=== PATIENT | female | born 1995 | race Hispanic/Latino ===

== ENCOUNTER 2022-08-16 01:41 | Emergency (ER) | payer SELFPAY ==
--- NOTE | 2022-08-16 02:20 | EDPHYS ---
Physician Documentation [facility] Name: Kaila Ambriz Age: 26 yrs Sex: Female : 1995 Arrival Date: 08/16/2022 Time: 01:44 Bed 16 Private MD: ED Physician Miguel Angel Ramirez HPI: 08/16 05:46 This 26 yrs old Female presents to ER via Ambulatory with complaints of rt Toothache, Jaw Pain, Swelling in jaw. 05:46 Patient presents to the ED with a right-sided dental pain, swelling to the right lower rt jaw starting yesterday. Patient has not seen a dentist recently. Denies difficulty swallowing, fevers, other acute complaints. Pain is aching nature, nonradiating, mild in severity, no other aggravating or alleviating factors.. 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 - Social history:: Smoking status: Patient denies any tobacco usage or history of. - Family history:: not pertinent. ROS: 05:46 Constitutional: Negative for fever, chills, and weight loss, Eyes: Negative for injury, rt pain, redness, and discharge, Respiratory: Negative for shortness of breath, cough, wheezing, and pleuritic chest pain, Abdomen/GI: Negative for abdominal pain, nausea, vomiting, diarrhea, and constipation, Skin: Negative for injury, rash, and discoloration, Neuro: Negative for headache, weakness, numbness, tingling, and seizure, Psych: Negative for depression, anxiety, suicide ideation, homicidal ideation, and hallucinations. 05:46 ENT: Positive for dental pain, Negative for difficulty handling secretions. Exam: 05:46 Constitutional: This is a well developed, well nourished patient who is awake, alert, rt and in no acute distress. Head/Face: Normocephalic, atraumatic. Skin: Warm, dry with normal turgor. Normal color with no rashes, no lesions, and no evidence of cellulitis. MS/ Extremity: Pulses equal, no cyanosis. Neurovascular intact. Full, normal range of motion. Neuro: Awake and alert, GCS 15, oriented to person, place, time, and situation. Cranial nerves II-XII grossly intact. Motor strength 5/5 in all extremities. Sensory grossly intact. Cerebellar exam normal. Normal gait. Psych: Awake, alert, with orientation to person, place and time. Behavior, mood, and affect are within normal limits. 05:46 ENT: Multiple dental caries noted. There is mild right-sided facial swelling at that location. No posterior pharyngeal erythema or exudates, tonsillar hypertrophy, uvula is midline. Vital Signs: 02:11 BP 133 / 88; Pulse 70; Resp 17; Temp 98.1(O); Pulse Ox 100% on R/A; Weight 60.1 kg (M); ll3 Height 5 ft. 2 in. (157.48 cm) (R); Pain 7/10; 02:11 Body Mass Index 24.23 (60.10 kg, 157.48 cm) ll3 MDM: 02:08 Patient medically screened. rt 05:46 Differential diagnosis: dental caries, RPA, TRAIN ANNOUNCER, Ludewig's angina. Data reviewed: vital rt signs, nurses notes. I considered the following discharge prescriptions or medication management in the emergency department Medications were administered in the Emergency Department. See MAR. Test considered but Not performed: CT: Do not suspect abscess requiring drainage, CT scan not indicated.. Counseling: I had a detailed discussion with the patient and/or guardian regarding: the historical points, exam findings, and any diagnostic results supporting the discharge/admit diagnosis, the need for outpatient follow up. Administered Medications: 02:32 Drug: Ketorolac 30 mg Route: IM; Site: left deltoid; ke1 02:33 Follow up: Response: Medication administered at discharge. ke1 02:32 Drug: Augmentin (Amoxicillin-Clavulanate) 875 mg Route: PO; ke1 02:33 Follow up: Response: Medication administered at discharge. ke1 Disposition Summary: 08/16/22 02:20 Discharge Ordered Location: Home rt Problem: new rt Symptoms: are unchanged rt Condition: Stable rt Diagnosis - Dental caries, unspecified rt Followup: rt - With: Private Physician - When: 2 - 3 days - Reason: Discharge Instructions: - Discharge Summary Sheet rt - Dental Caries, Adult rt - Dental Pain rt Forms: - Medication Reconciliation Form rt - Thank You Letter rt - Antibiotic Education rt - Prescription Opioid Use rt Prescriptions: - Augmentin 875-125 mg Oral Tablet - take 1 tablet by ORAL route every 12 hours for 10 days; 20 tablet; Refills: 0, rt Product Selection Permitted Signatures: Mary Sosa RN RN ll3 Anatoly Abreu RN RN ke1 Miguel Angel Ramirez MD MD rt
--- NOTE | 2022-08-16 02:20 | ER ---
Nurse's Notes [facility] Name: Kaila Ambriz Age: 26 yrs Sex: Female : 1995 Arrival Date: 08/16/2022 Time: 01:44 Bed 16 Private MD: Diagnosis: Dental caries, unspecified Presentation: 08/16 02:11 Chief complaint: Patient states: C/o right sided jaw pain and swelling since yesterday ll3 morning. Coronavirus screen: Vaccine status: Patient reports being unvaccinated. At this time, the client does not indicate any symptoms associated with coronavirus-19. Ebola Screen: No symptoms or risks identified at this time. Initial Sepsis Screen: Does the patient meet any 2 criteria? No. Patient's initial sepsis screen is negative. Does the patient have a suspected source of infection? No. Patient's initial sepsis screen is negative. Risk Assessment: Do you want to hurt yourself or someone else? Patient reports no desire to harm self or others. Onset of symptoms was August 15, 2022. Care prior to arrival: Medication(s) given: [place] 5 MG at 1900. 02:11 Method Of Arrival: Ambulatory ll3 02:11 Acuity: THU 3 ll3 Triage Assessment: 02:13 General: Appears uncomfortable, Behavior is calm, cooperative. Pain: Complains of pain ll3 in right jaw Pain does not radiate. Pain currently is 7 out of 10 on a pain scale. Pain began 1 day ago. Is continuous. EENT: Reports pain in right jaw Pain is 7 out of 10 on a pain scale. since 1900. Derm: Skin is pink, warm \T\ dry. Musculoskeletal: Swelling present in right jaw. 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 - Social history:: Smoking status: Patient denies any tobacco usage or history of. - Family history:: not pertinent. Screenin:15 [facility] ED Fall Risk Assessment (Adult) History of falling in the last 3 months, ke1 including since admission No falls in past 3 months (0 pts) Confusion or Disorientation No (0 pts) Intoxicated or Sedated No (0 pts) Impaired Gait No (0 pts) Mobility Assist Device Used No (0 pt) Altered Elimination No (0 pt) Score/Fall Risk Level 0 - 2 = Low Risk. Abuse screen: Denies threats or abuse. Nutritional screening: No deficits noted. Tuberculosis screening: No symptoms or risk factors identified. Vital Signs: 02:11 BP 133 / 88; Pulse 70; Resp 17; Temp 98.1(O); Pulse Ox 100% on R/A; Weight 60.1 kg (M); ll3 Height 5 ft. 2 in. (157.48 cm) (R); Pain 7/10; 02:11 Body Mass Index 24.23 (60.10 kg, 157.48 cm) ll3 ED Course: 01:44 Patient arrived in ED. [id number] 02:08 Miguel Angel Ramirez MD is Attending Physician. rt 02:13 Triage completed. ll3 02:13 Arm band placed on Patient placed in an exam room, on a stretcher, on pulse oximetry. ll3 02:15 Bed in low position. ke1 02:22 Anatoly Abreu, NAVIN is Primary Nurse. ke1 02:33 No provider procedures requiring assistance completed. ke1 02:33 Patient did not have IV access during this emergency room visit. ke1 Administered Medications: 02:32 Drug: Ketorolac 30 mg Route: IM; Site: left deltoid; ke1 02:33 Follow up: Response: Medication administered at discharge. ke1 02:32 Drug: Augmentin (Amoxicillin-Clavulanate) 875 mg Route: PO; ke1 02:33 Follow up: Response: Medication administered at discharge. ke1 Medication: 02:33 VIS not applicable for this client. ke1 Outcome: 02:20 Discharge ordered by . rt 02:33 Discharged to home ambulatory. ke1 02:33 Condition: good 02:33 Discharge instructions given to patient. 02:34 Patient left the ED. ke1 Signatures: Yvette Farias [id number] Mary Sosa RN RN 3 Anatoly Abreu RN RN ke1 Miguel Angel Ramirez MD MD rt
[2022-08-16] MEDS ORDERED: KETOROLAC 30 MG/ML INJ ONE (02:28)
[2022-08-16] MEDS ORDERED: AMOX/K CLAV 875 MG TAB ONE (02:28)
[2022-08-16 02:54] VITALS: BP 133/88; TEMP 98.1; O2SAT 100
== END 2022-08-16 02:34 | disposition home or self-care (01) ==
LOC: ER 01:41
DX: K02.9 Dental caries, unspecified (principal)
CPT/HCPCS: 96372; 99283